=== PATIENT | female | born 1980 | race Caucasian/White ===

== ENCOUNTER → 2024-03-01 06:28 | Day surgery (SDC) | payer OTHER, SELFPAY | LOC: GI 06:28 | PROVIDERS: ATTENDING PHYSICIAN Internal Medicine Gastroenterology | DX: Z12.11 Encounter for screening for malignant neoplasm of colon (principal); D12.3 Benign neoplasm of transverse colon | CPT/HCPCS: 45385; 45380; 88305 ==